=== PATIENT | female | born 1950 | race Caucasian/White ===

== ENCOUNTER → 2025-04-29 | Day surgery (SDC) | payer OTHER ==
[2025-04-27 09:16] VITALS: BP 140/87
[2025-04-27 09:32] LABS: BASO % 0.4 % (0.1-1.2); EOS # 0.07 (0.04-0.54); EOS % 1.3 % (0.7-7.0); LYMPH # 0.91 (1.18-3.74); LYMPH % 17.3 % (19.3-53.1); MEAN PLATELET VOLUME 9.10 fl (9.4-12.4); MONO # 0.61 (0.24-0.82); MONO % 11.6 % (4.7-12.5); NEUT # 3.65 (1.56-6.13); NEUT % 69.2 % (34.0-71.1); RED CELL DISTRIBUTION WIDTH 14.4 % (11.6-14.4)
[2025-04-27 09:34] LABS: URINE APPEARANCE Clear; URINE BILIRRUBIN Negative (NEGATIVE); URINE BLOOD Trace; URINE COLOR Yellow; URINE GLUCOSE Negative (NEGATIVE); URINE KETONE Negative (NEGATIVE); URINE LEUKOCYTE Negative; URINE NITRATE Negative; URINE PROTEIN Negative (NEGATIVE); URINE UROBILINOGEN 0.2 E.U./dl
[2025-04-27 09:39] LABS: URINE BACTERIA 6.0 uL (0.0-1933); URINE RBC 32.6 uL (0.0-20.8)
[2025-04-27 09:45] LABS: URINE CAST 0.14 uL (0.0-1.40); URINE EPITHELIAL CELLS 0.9 uL (0.0-38.8); URINE WBC 1.0 uL (0.0-23.2)
[2025-04-27 09:53] LABS: INR 0.94
[2025-04-27 10:29] LABS: BUN CREA RATIO 33.0 (7.0-25.0); CREATININE SERUM 0.86 mg/dL (0.55-1.02); GFR 64.86; GLUCOSE FASTING 91.0 mg/dL (65-100); OSMOLALITY SERUM 283.0 MOSM/KG (275-295)
[~2025-04-29] VITALS: Ht 157.5 cm; Wt 35.8 kg
[~2025-04-29] MED LIST: CEFAZOLIN SODIUM 1,000 MG VIAL ONE; CIPROFLOX-DEXA7.5 ML OT; LIDOCAINE HCL 1%/EPINEPHRINE 20ML VIAL IJ ONE; NEOMYCIN/POLYMYXIN B/HYDROCORT 20 DR/ML BOTTLE OT ONE; POVIDONE-IODINE 118 ML BOTT TOP ONE; TOPROL XL25 M1
== END | disposition home or self-care (01) ==
LOC: CIR.AMB 07:00
PROVIDERS: ATTEND Otolaryngology Otology & Neurotology
DX: C30.1 Malignant neoplasm of middle ear (principal)